=== PATIENT | male | born 2000 | race Two or more races ===

== ENCOUNTER 2024-08-11 01:27 | Emergency (ER) | payer MEDICAID, OTHER ==
[~2024-08-11] VITALS: Ht 170.2 cm; Wt 67.2 kg
[2024-08-11 01:44] VITALS: BP 131/71; PULSE 75; RESP 18; TEMP 97.6; O2SAT 99
[2024-08-11] MEDS: ONDANSETRON ODT 4 MG TAB PO ONE (03:53)
[2024-08-11] MEDS: DexAMETHasone SOD PHOS 10MG/1ML VIAL INJ IM ONE (03:54)
[2024-08-11] MEDS: KETOROLAC TROMETH 60MG/2ML VIAL IM ONE (03:54)
== END 2024-08-11 04:06 | disposition home or self-care (01) ==
LOC: ER 01:27
DX: R51.9 Headache, unspecified (principal); F12.10 Cannabis abuse, uncomplicated
CPT/HCPCS: 96372; 99284; J1100; J1885; Q0162